=== PATIENT | male | born 1960 | race Caucasian/White ===

== ENCOUNTER → 2019-02-08 | Outpatient (CLI) | payer BC ==
--- NOTE | 2019-02-08 17:16 | PCVCIMAG ---
APPROVED REPORT Study performed: 02/08/2019 14:50:42 EXAM: Comprehensive 2D, Doppler, and color-flow Echocardiogram Patient Location: Echo lab Status: routine BSA: 2.18 HR: 92 bpmBP: 124/68 mmHg Rhythm: Atrial Fibrillation Other Information Study Quality: Adequate Risk Factors: Cardiac Risk Factors: HTN, Hyperlipidemia Indications Atrial Fibrillation 2D Dimensions IVSd: 11.73 (7-11mm)LVOT Diam: 24.50 (18-24mm) LVDd: 39.47 mm PWd: 10.84 (7-11mm)Ascending Ao: 33.66 (22-36mm) LVDs: 26.96 (25-40mm) Left Atrium: 34.19 (27-40mm) Aortic Root: 38.62 mm LV Single Plane 4CH: 54.51 % LV Single Plane 2CH: 49.29 % Biplane EF: 51.3 % Volumes Left Atrial Volume (Systole) Single Plane 4CH: 36.15 mLSingle Plane 2CH: 49.43 mL LA ESV Index: 20.00 mL/m2 Aortic Valve AoV Peak William.: 0.89 m/s AO Peak Gr.: 3.14 mmHgLVOT Max P.80 mmHg LVOT Max V: 0.73 m/s KAREN Vmax: 3.89 cm2 Mitral Valve E/A Ratio: 1.0 MV E Max William.: 0.66 m/s MV A William.: 0.66 m/s Tricuspid Valve TR Peak William.: 2.16 m/s TR Peak Gr.: 18.65 mmHg Left Ventricle The left ventricle is normal size. There is normal LV segmental wall motion. There is normal left ventricular wall thickness. Left ventricular systolic function is normal. The left ventricular ejection fraction is within the normal range. LVEF is 50-55%. This study is not technically sufficient to allow evaluation of the LV diastolic function due to atrial fibrillation. Right Ventricle The right ventricle is normal size. The right ventricular systolic function is normal. Atria The left atrium size is normal. The right atrium size is normal. Aortic Valve The aortic valve is normal in structure. Trace aortic regurgitation. There is no aortic valvular stenosis. Mitral Valve The mitral valve is normal in structure. Trace to mild mitral regurgitation. No evidence of mitral valve stenosis. Tricuspid Valve The tricuspid valve is normal in structure. Trace tricuspid regurgitation. Pulmonary aretery pressure is 26mmHg. Pulmonic Valve The pulmonary valve is normal in structure. There is no pulmonic valvular regurgitation. Great Vessels The aortic root is normal in size. IVC is normal in size and collapses >50% with inspiration. Pericardium There is no pericardial effusion. <Conclusion> The left ventricle is normal size. LVEF is 50-55%. This study is not technically sufficient to allow evaluation of the LV diastolic function due to atrial fibrillation. The right ventricle is normal size. The left atrium size is normal. The aortic valve is normal in structure. Trace to mild mitral regurgitation. Trace tricuspid regurgitation. Pulmonary aretery pressure is 26mmHg. The aortic root is normal in size. There is no pericardial effusion.
== END | disposition home or self-care (01) ==
LOC: PCVCIMAG 14:40
PROVIDERS: ATTEND Internal Medicine Cardiovascular Disease
DX: I07.1 Rheumatic tricuspid insufficiency (principal); I48.91 Unspecified atrial fibrillation; E78.00 Pure hypercholesterolemia, unspecified; I10 Essential (primary) hypertension
CPT/HCPCS: 93306

== ENCOUNTER → 2019-02-23 | Outpatient (CLI) | payer BC ==
--- NOTE | 2019-02-24 10:38 | PCVCIMAG ---
APPROVED REPORT Study performed: 02/23/2019 15:52:19 Exam: Stress Echocardiogram Indication: Atrial Fibrillation, fam hx cad, dyspnea, chest tightness Patient Location: Echo lab Stress Nurse: Niesha Wyatt RN Status: routine Ht: 6 ft 0 in HR: 63 bpm BP: 118/80 mmHg Rhythm: NSR Procedure The patient underwent an Exercise Stress Test using the Josh Protocol. Blood pressure, heart rate, and EKG were monitored. An Echocardiogram was performed by technicians and trades workers in four stages in quad fashion. At peak stress, four selected images were obtained and placed side by side with resting images for comparison. Stress Test Details Stress Test: Exercise stress testing was performed using a Josh protocol. HR Resting HR: 63 bpmMax Heart Rate (APMHR): 161 bpm Max HR Achieved: 133 bpmTarget HR (85% APMHR): 136 bpm % of APMHR: 82 Recovery HR: 75 bpm HR response to stress: Normal HR response to stress BP Resting BP: 118/80 mmHg Max BP: 146/76 mmHg Recovery BP: 120/78 mmHg BP response to stress: Normal blood pressure response to stress. ECG Resting ECG: Sinus Rhythm Stress ECG: Sinus Rhythm ST Change: Normal Arrhythmia: None Recovery ECG: Sinus Rhythm Recovery ST Change: Normal Recovery Arrhythmia: None Clinical Reason for Termination: Maximal effort, knee pain Stress Symptoms: Dyspnea, limiting knee pain Exercise duration: 12 min sec Highest Stage Achieved: Stage 4: 4.2 mph at 16% grade. Exercise capacity: 13.4 METs Overall Exercise Capacity for Age: Normal Scale: Active Angina Score: None Pre-Stress Echo The resting Echocardiogram showed normal left ventricular contractility with an estimated Ejection Fraction of about >55%. Normal wall motion in all segments on baseline images. Post-Stress Echo The stress Echocardiogram showed normal left ventricular contractility with an estimated Ejection Fraction of about 65%. Normal augmentation of wall motion in all segments on post stress images. Clinical No clinical or ECG evidence for ischemia. Conclusion Clinical Response: Non-ischemic Exercise Capacity: Average Stress ECG Response: Non-ischemic Stress Echo Images: Non-ischemic The left ventricle is normal in size and wall thickness in both the rest and stress images. Other Information Study Quality: Adequate <Conclusion> The left ventricle is normal in size and wall thickness in both the rest and stress images.
== END | disposition home or self-care (01) ==
LOC: PCVCIMAG 15:48
PROVIDERS: ATTEND Internal Medicine Cardiovascular Disease
DX: I48.91 Unspecified atrial fibrillation (principal); R06.09 Other forms of dyspnea; R07.89 Other chest pain; I10 Essential (primary) hypertension; E78.00 Pure hypercholesterolemia, unspecified; R91.1 Solitary pulmonary nodule; Z82.49 Family history of ischemic heart disease and other diseases of the circulatory system
CPT/HCPCS: 93325; 93351